=== PATIENT | female | born 1995 | race African-American/Black ===

== ENCOUNTER 2018-02-15 13:02 | Inpatient (IN) | payer OTHER ==
[2018-02-15 14:06] LABS: BASO % 0.3 % (0.0-1.0); EOS # 0.1 10^3/uL (0.0-0.50); EOS % 0.6 % (0.0-3.0); HEMATOCRIT 44.7 % (36.0-47.0); HEMOGLOBIN 15.1 g/dl (12.0-15.5); IMMATURE GRANULOCYTE % 0.2 % (0-3.0); LYMPH # 2.6 10^3/uL (1.5-6.5); MEAN CORPUSCULAR HEMOGLOBIN 29.8 pg (27.0-33.0); MEAN CORPUSCULAR HGB CONC 33.8 g/dl (32.0-36.5); MEAN CORPUSCULAR VOLUME 88.2 fl (80.0-96.0); MONO # 0.7 10^3/uL (0.0-0.8); MONO % 7.6 % (0.0-5.0); NEUTROPHILS # 6.2 10^3/uL (1.8-7.7); NEUTROPHILS % 64.3 % (36.0-66.0); PLATELET COUNT, AUTOMATED 224 10^3/uL (150-450); RED BLOOD COUNT 5.07 10^6/uL (4.00-5.40); RED CELL DISTRIBUTION WIDTH 12.8 % (11.5-14.5); WHITE BLOOD COUNT 9.6 10^3/uL (4.0-10.0)
[2018-02-15 14:24] LABS: ANION GAP 5 MEQ/L (8-16); BLOOD UREA NITROGEN 12 MG/DL (7-18); CALCIUM LEVEL 9.2 MG/DL (8.5-10.1); CARBON DIOXIDE LEVEL 28 MEQ/L (21-32); CHLORIDE LEVEL 108 MEQ/L (98-107); CREATININE FOR GFR 0.78 MG/DL (0.55-1.30); GLOMERULAR FILTRATION RATE > 60.0 (>60); GLUCOSE, FASTING 79 MG/DL (70-100); POTASSIUM SERUM 4.3 MEQ/L (3.5-5.1); SODIUM LEVEL 141 MEQ/L (136-145)
[2018-02-15] MEDS ORDERED: PROHANCE 279.3MG/ML 15ML VIAL (A9576) As Ordered (16:00)
[2018-02-15] MEDS ORDERED: PROHANCE 279.3MG/ML 5ML VIAL (A9576) As Ordered (16:00)
[2018-02-15] MEDS ORDERED: ACETAMINOPHEN 500 MG TAB PO (18:15)
[2018-02-15] MEDS: SENOKOT S TAB PO (20:33)
[2018-02-16 07:24] LABS: BASO % 0.3 % (0.0-1.0); EOS # 0.1 10^3/uL (0.0-0.50); EOS % 0.9 % (0.0-3.0); HEMATOCRIT 42.6 % (36.0-47.0); HEMOGLOBIN 14.3 g/dl (12.0-15.5); IMMATURE GRANULOCYTE % 0.4 % (0-3.0); LYMPH # 2.9 10^3/uL (1.5-6.5); MEAN CORPUSCULAR HEMOGLOBIN 29.9 pg (27.0-33.0); MEAN CORPUSCULAR HGB CONC 33.6 g/dl (32.0-36.5); MEAN CORPUSCULAR VOLUME 89.1 fl (80.0-96.0); MONO # 0.8 10^3/uL (0.0-0.8); MONO % 8.1 % (0.0-5.0); NEUTROPHILS # 6.2 10^3/uL (1.8-7.7); NEUTROPHILS % 61.3 % (36.0-66.0); PLATELET COUNT, AUTOMATED 214 10^3/uL (150-450); RED BLOOD COUNT 4.78 10^6/uL (4.00-5.40); RED CELL DISTRIBUTION WIDTH 12.8 % (11.5-14.5); WHITE BLOOD COUNT 10.1 10^3/uL (4.0-10.0)
[2018-02-16 07:40] LABS: ANION GAP 7 MEQ/L (8-16); BLOOD UREA NITROGEN 10 MG/DL (7-18); CALCIUM LEVEL 8.7 MG/DL (8.5-10.1); CARBON DIOXIDE LEVEL 26 MEQ/L (21-32); CHLORIDE LEVEL 108 MEQ/L (98-107); CREATININE FOR GFR 0.81 MG/DL (0.55-1.30); GLOMERULAR FILTRATION RATE > 60.0 (>60); GLUCOSE, FASTING 90 MG/DL (70-100); POTASSIUM SERUM 4.2 MEQ/L (3.5-5.1); SODIUM LEVEL 141 MEQ/L (136-145)
[2018-02-16] MEDS: SENOKOT S TAB PO (08:20)
[2018-02-16 10:45] LABS: CSF TUBE# GLU TUBE 1; CSF TUBE# TP TUBE 1; GLUCOSE CSF 62 MG/DL (40-75); TOTAL PROTEIN,CSF 15.2 MG/DL (15-45)
[2018-02-16 10:48] LABS: CSF RBC < 2 10^3/uL (<2)
[2018-02-16 10:49] LABS: CSF DIFF IF INDICATED? NO (NO); CSF WBC < 1 /uL (0-10)
[2018-02-16] MEDS: predniSONE 20 MG TAB PO (12:33)
[2018-02-16 12:39] LABS: APPEARANCE, CSF CLEAR (CLEAR); COLOR, CSF COLORLESS (COLORLESS); CSF TUBE# CELL CNT TUBE 4
[2018-02-16 13:24] LABS: CONTROL LINE HCG INT CTR LINE PRESENT; HCG, SERUM QUALITATIVE NEGATIVE (NEGATIVE)
[2018-02-16 14:29] LABS: CONTROL LINE UCG INT CTR LINE PRESENT; URINE PREG TEST NEGATIVE (NEGATIVE)
[2018-02-16] MEDS: AcetaZOLAMIDE 500 MG ER CAP PO (14:29)
[2018-02-16 14:35] LABS: TOTAL PROTEIN,RANDOM URINE 6.7 MG/DL (0.0-12.0)
[2018-02-16] MEDS ORDERED: TROPICAMIDE 1% OPHTH SOLN 2ML OU (16:00)
[2018-02-16] MEDS ORDERED: PROPARACAINE 0.5% OPHTH SOL 15ML OU (16:00)
[2018-02-16] MEDS ORDERED: PHENYLEPHRINE 2.5% OPHTH SOL 2ML OU (16:00)
[2018-02-16] MEDS ORDERED: PHENYLEPHRINE 2.5% OPHTH SOL 2ML As Ordered (16:07)
[2018-02-16] MEDS ORDERED: PROPARACAINE 0.5% OPHTH SOL 15ML As Ordered (16:07)
[2018-02-16] MEDS ORDERED: TROPICAMIDE 1% OPHTH SOLN 2ML As Ordered (16:09)
== END 2018-02-16 19:37 | disposition home or self-care (01) | DRG 103 ==
LOC: M ED 13:02 → M ED INP 18:04 → M PED 20:00
DX: G93.2 Benign intracranial hypertension (principal); H47.11 Papilledema associated with increased intracranial pressure; H49.21 Sixth [abducent] nerve palsy, right eye

== ENCOUNTER → 2019-08-09 | Outpatient (REF) | payer OTHER ==
[~2019-08-09] MED LIST: ACET50CA PO; AFRI0.052; CETI10TA PO; NAPR-885; NASA0.054; NASA30TA; PRED10TA2 PO; PSEU30TA21 PO
[2019-08-09 21:41] LABS: CHLAMYDIA DNA AMPLIFICATION NEGATIVE (NEGATIVE); GC DNA AMPLIFICATION NEGATIVE (NEGATIVE)
== END ==
LOC: M SFHCLERA 15:00
PROVIDERS: ATTEND Nurse Practitioner Family
DX: R39.9 Unspecified symptoms and signs involving the genitourinary system (principal)
CPT/HCPCS: 81002; 81025; 87088; 87186; 87661; G0463